=== PATIENT | male | born 1945 | race Caucasian/White ===

== ENCOUNTER 2017-02-16 15:25 | Emergency (ER) | payer MEDICARE ==
[~2017-02-16] VITALS: Ht 177.8 cm; Wt 82.4 kg
[2017-02-16 15:48] VITALS: BP 125/71
[2017-02-16] MEDS ORDERED: CHOL400T55 PO (17:39)
[2017-02-16] MEDS ORDERED: LEVO150T PO (17:39)
== END 2017-02-16 18:04 | disposition home or self-care (01) ==
LOC: ED 17:58
DX: M79.661 Pain in right lower leg (principal); R23.8 Other skin changes
CPT/HCPCS: 99284

== ENCOUNTER 2019-11-21 09:28 | Outpatient (CLI) | payer MEDICARE ==
[~2019-11-21 09:28] MED LIST: CHOL400T55 PO; LEVO150T PO
[2019-11-21] MEDS ORDERED: CHOL10003 PO (10:02)
[2019-11-21] MEDS ORDERED: LOSA25TA25 PO (10:02)
[2019-11-21] MEDS ORDERED: PSEU120T9 PO (10:02)
[2019-11-21] MEDS ORDERED: MULT-658 PO (10:02)
[2019-11-21] MEDS ORDERED: Iron PO (10:02)
[2019-11-21 10:40] LABS: BASOPHILS # (AUTO) 0.01 x10^3/uL (0-0.1); BASOPHILS % (AUTO) 0 % (0-1); EOSINOPHILS # (AUTO) 0.02 x10^3/uL (0-0.4); EOSINOPHILS % (AUTO) 0 % (1-7); LYMPHOCYTES # (AUTO) 1.06 x10^3/uL (1-3.4); LYMPHOCYTES % (AUTO) 21 % (22-44); MD NO; MEAN CORPUSCULAR HEMOGLOBIN 31.5 pg (27.5-34.5); MEAN CORPUSCULAR HGB CONC 32.9 g/dL (33.2-36.2); MEAN CORPUSCULAR VOLUME 95.7 fL (81-97); MEAN PLATELET VOLUME 8.4 fL (7.4-10.4); MONOCYTES # (AUTO) 0.66 x10^3/uL (0.2-0.8); MONOCYTES % (AUTO) 13 % (2-9); NEUTROPHILS # (AUTO) 3.43 x10^3/uL (1.8-6.8); NEUTROPHILS % (AUTO) 66 % (42-75); PLATELET COUNT 192 x10^3/uL (130-400); RED BLOOD COUNT 4.58 x10^6/uL (4.38-5.82); RED CELL DISTRIBUTION WIDTH 14.5 % (9.4-14.8)
[2019-11-21 10:49] LABS: ALBUMIN 3.6 g/dL (3.4-5.0); ANION GAP 6 mmol/L (5-15); CALCIUM 8.1 mg/dL (8.5-10.1); CHLORIDE 101 mmol/L (98-107)
[2019-11-21 10:54] LABS: ALANINE AMINOTRANSFERASE 24 U/L (12-78); ALKALINE PHOSPHATASE 69 U/L (45-117); TOTAL PROTEIN 6.8 g/dL (6.4-8.2)
== END 2019-11-21 23:59 | disposition home or self-care (01) ==
LOC: STAR 09:28
PROVIDERS: ATTEND Surgery
DX: Z01.818 Encounter for other preprocedural examination (principal); Z11.59 Encounter for screening for other viral diseases; K40.90 Unilateral inguinal hernia, without obstruction or gangrene, not specified as recurrent; R00.1 Bradycardia, unspecified
CPT/HCPCS: 36415; 80053; 85025; 93005; U0001

== ENCOUNTER 2019-11-25 08:58 | Day surgery (SDC) | payer MEDICARE ==
[~2019-11-25] VITALS: Ht 177.8 cm; Wt 75.3 kg
[~2019-11-25 08:58] MED LIST changes: +BUPIVACAINE/PF-EPI 0.5% 1:200K ONE; +CHOL10003 PO; +Iron PO; +LOSA25TA25 PO; +MULT-658 PO; +PSEU120T9 PO
[2019-11-25 09:19] VITALS: BP 149/88
[2019-11-25] MEDS ORDERED: LACTATED RINGERS 1,000 ML IV SCH (09:23)
[2019-11-25] MEDS ORDERED: CHLORHEXIDINE 15 ML UDC ONE (09:29)
[2019-11-25] MEDS ORDERED: CHLORHEXIDINE 15 ML UDC MM ONE (09:30)
[2019-11-25] MEDS ORDERED: ROCURONIUM 10 MG/ML,10ML ONE (10:54)
[2019-11-25] MEDS ORDERED: ONDANSETRON 2MG/ML, 2ML ONE (10:54)
[2019-11-25] MEDS ORDERED: MIDAZOLAM 1 MG/ML, 5ML ONE (10:54)
[2019-11-25] MEDS ORDERED: PROPOFOL 10 MG/ML, 100ML IV ONE (10:54)
[2019-11-25] MEDS ORDERED: SUCCINYLCHOLINE 20 MG/ML, 10ML ONE (10:54)
[2019-11-25] MEDS ORDERED: DEXAMETHASONE 4 MG/ML, 1ML ONE (10:54)
[2019-11-25] MEDS ORDERED: CEFAZOLIN PMX 1GM/50ML ONE (10:54)
[2019-11-25] MEDS ORDERED: SUGAMMADEX 200 MG/2 ML IVPush ONE (10:54)
[2019-11-25] MEDS ORDERED: PROMETHAZINE 25 MG/ML, 1ML IVPush PRN (11:00)
[2019-11-25] MEDS ORDERED: KETOROLAC 30 MG/1 ML IVPush PRN (11:00)
[2019-11-25] MEDS ORDERED: HYDROcodone/APAP 7.5-325MG/15ML UDC PO PRN (11:00)
[2019-11-25] MEDS ORDERED: MEPERIDINE/PF 25MG/0.5ML IVPush PRN (11:00)
[2019-11-25] MEDS ORDERED: BUPIVACAINE/PF-EPI 0.5% 1:200K ONE (11:42)
[2019-11-25] MEDS: FENTANYL PF 100 MCG/2ML IV PRN ×2 (12:26→12:38)
[2019-11-25] MEDS ORDERED: KETOROLAC 30 MG/1 ML ONE (12:27)
[2019-11-25] MEDS ORDERED: HYDROcodone/APAP 7.5-325MG/15ML UDC ONE (12:27)
[2019-11-25] MEDS ORDERED: FENTANYL PF 100 MCG/2ML ONE (12:27)
[2019-11-25] MEDS ORDERED: HYDROmorphone 1 MG/ML, 1ML INJ ONE (12:44)
[2019-11-25] MEDS: HYDROmorphone 1 MG/ML, 1ML INJ IVPush PRN ×2 (12:47→12:52)
== END 2019-11-25 14:15 | disposition home or self-care (01) ==
LOC: OR 08:58
PROVIDERS: ATTEND Surgery
DX: K40.20 Bilateral inguinal hernia, without obstruction or gangrene, not specified as recurrent (principal); D17.6 Benign lipomatous neoplasm of spermatic cord; I10 Essential (primary) hypertension; E03.9 Hypothyroidism, unspecified; Z79.890 Hormone replacement therapy; Z79.899 Other long term (current) drug therapy; Z85.850 Personal history of malignant neoplasm of thyroid; Z88.0 Allergy status to penicillin; Z88.2 Allergy status to sulfonamides; Z88.8 Allergy status to other drugs, medicaments and biological substances; Z96.659 Presence of unspecified artificial knee joint
CPT/HCPCS: 49650; C1781; J0330; J0690; J1100; J1170; J1885; J2250; J2405; J2704; J3010; J7120